=== PATIENT | male | born 1960 | race Caucasian/White ===

== ENCOUNTER 2025-01-12 08:01 | Emergency (ER) | payer BC, SELFPAY ==
[2025-01-12] VITALS (14 sets, daily range): BP systolic 128–180; BP diastolic 67–106
--- NOTE | 2025-01-12 08:22 | ED.GENMED ---
History of Present Illness
<DOMENICO Garcia - Last Filed: 01/12/25 12:34>
General
Chief Complaint: Musculo-Skeletal Complaint
Source: patient
Exam Limitations: none
Time Seen by Provider: 01/12/25 08:11
Nursing documentation reviewed up to this point in time: agreed with
History of Present Illness
History of Present Illness:
64 yr old male presents today for evaluation of fall. Patient Tripped in the shower and landed on his right shoulder. He denies hitting his head. No loss of consciousness. He complains of pain to the right shoulder and is right-hand dominant.
He did take oxycodone prior to arrival. He is not on blood thinners.
Past History
<DOMENICO Garcia - Last Filed: 01/12/25 12:34>
Past History
ED Past Medical History: NIDDM
Social History
Tobacco: Non-smoker
Personal:
Living: with family
Phy Exam
<DOMENICO Garcia - Last Filed: 01/12/25 12:34>
General Physical Exam
General Presentation: no apparent distress
General age: appears stated age
General Skin: warm and dry
General Habitus: normal
General Mental: alert
General Hydration: appears well hydrated
Eye Exam
Eye Exam: PERRL and EOMI
Eye Exam General: PERRL: bilateral
Pupil Exam: Bilateral: round and reactive
Neurological Exam
Neurological Exam: alert and oriented x3
Musculoskeletal Exam
Musculoskeletal Exam: other (No obvious head injury no cervical spine tenderness patient with obvious deformity to right shoulder strong pulses normal distal sensation)
Skin Exam
Skin Exam: normal color and warm/dry
Psychiatric Exam
Psychiatric Exam: normal mood/affect
Course
<DOMENICO Garcia - Last Filed: 01/12/25 12:34>
Orders/Labs/Results
Orders:
Orders
01/12/25 08:08
Shoulder, Right, Trauma [CR Shoulder, Trauma - Right] Urgent
Comment:
Reason For Exam: pain injury
01/12/25 08:46
HYDROmorphone [Dilaudid] 0.5 mg IV NOW STA
01/12/25 09:29
Propofol [Diprivan] 20 ml .ROUTE .STK-MED
01/12/25 10:04
Shoulder, Right 2 Views [CR Shoulder - Right Min 2 View] Stat
Comment:
Reason For Exam: post reduction
01/12/25 10:11
CT Upper Ext W/o Iv Cont Rt Urgent
Comment:
Reason For Exam: right shoulder
01/12/25 12:09
Oxycodone [Roxicodone] 5 mg PO NOW STA
Vital Signs
Initial and Last Documented VS:
Initial Vital Signs
Temp Pulse Resp BP Pulse Ox
98.0 F 66 16 166/87 100
01/12/25 08:05 01/12/25 08:05 01/12/25 08:05 01/12/25 08:05 01/12/25 08:05
Last Documented Vital Signs
Temp Pulse Resp BP Pulse Ox
98 F 78 16 128/67 100
01/12/25 12:07 01/12/25 12:07 01/12/25 12:07 01/12/25 12:07 01/12/25 12:07
<Carlos Jacobs MD - Last Filed: 01/12/25 10:26>
Orders/Labs/Results
Orders:
Orders
01/12/25 08:08
Shoulder, Right, Trauma [CR Shoulder, Trauma - Right] Urgent
Comment:
Reason For Exam: pain injury
01/12/25 08:46
HYDROmorphone [Dilaudid] 0.5 mg IV NOW STA
01/12/25 09:29
Propofol [Diprivan] 20 ml .ROUTE .STK-MED
01/12/25 10:04
Shoulder, Right 2 Views [CR Shoulder - Right Min 2 View] Stat
Comment:
Reason For Exam: post reduction
01/12/25 10:11
CT Upper Ext W/o Iv Cont Rt Urgent
Comment:
Reason For Exam: right shoulder
01/12/25 12:09
Oxycodone [Roxicodone] 5 mg PO NOW STA
Vital Signs
Initial and Last Documented VS:
Initial Vital Signs
Temp Pulse Resp BP Pulse Ox
98.0 F 66 16 166/87 100
01/12/25 08:05 01/12/25 08:05 01/12/25 08:05 01/12/25 08:05 01/12/25 08:05
Last Documented Vital Signs
Temp Pulse Resp BP Pulse Ox
98 F 78 16 128/67 100
01/12/25 12:07 01/12/25 12:07 01/12/25 12:07 01/12/25 12:07 01/12/25 12:07
Procedures
<DOMENICO Garcia - Last Filed: 01/12/25 12:34>
Moderate Sedation
ASA Risk Score: Class II
Chart and allergies reviewed: Yes
Consent for anesthesia obtained: Yes
Time out completed (validating right patient & procedure): Yes
History of difficult intubation: No
Airway free of obstruction: Yes
Patient has a gag reflex: Yes
Patient is able to open mouth: Yes
Patient has no dentures: No (partial removed )
Patient has no loose teeth: Yes
Medication administered by Provider during Moderate Sedation: IV Propofol (mg)
Total dose administered: 100
Time drug administered: 09:57
Moderate Sedation Procedure End Time: 10:13
Joint/Fracture Reduction
Right Shoulder:
Indication for procedure:: Fracture dislocation right shoulder
Procedure completed by: Dr. Jacobs/myself
Consent form signed: Yes
If no, reason: Emergency procedure
Joint reduced: with anesthesia sedation
Injury was: closed
Further treatement: needs re-check only
Post reduction exam: stable
Capillary Refill: normal
Normal distal neurovascular exam?: Yes
<DOMENICO Garcia - Last Filed: 01/12/25 12:34>
MDM/Problems Addressed
Differential Diagnosis Includes:
Not limited to contusion fracture dislocation
MDM/Problems Addressed:
64 yr old male present to the ER for evaluation after fall in the shower. He landed on his right shoulder no head injury no neck pain. Patient presents the fracture dislocation to the right shoulder with strong pulses normal neurovascular exam.
Case reviewed with orthopedics was able to visualize x-ray via [place] text does recommend to reduce.
Case discussed with ED physician moderate sedation was done and right shoulder was successfully reduced there is still a visible fracture, of the neck of the right proximal humerus.
As per orthopedics Dr. Lancaster CAT scan done. Will plan for discharge, close outpatient follow-up in a sling.
<DOMENICO Garcia - Last Filed: 01/12/25 12:34>
*Radiology
Radiology exam reviewed: radiology read reviewed
*Pulse Oximetry
SaO2: 100
Oxygen Mode of Delivery: Room air
Patient hypoxic: no
*Critical Care Note
Total Time (30-74mins, 75-104mins- exclusive of procedures): Not Applicable
ED Attending Note
<DOMENICO Garcia - Last Filed: 01/12/25 12:34>
-
Portions of this chart may have been created with voice recognition software.� Occasional wrong word or��sound alike� substitutions may have occurred due to the inherent limitations of voice recognition software.
<Carlos Jacobs MD - Last Filed: 01/12/25 10:26>
ED Attending Note
Patient seen and examined by attending physician: Yes
I performed the substantive portion of visit, reviewed & personally made and approve the management plan that is documented in note by myself or NADIRA.: Yes
ED Attending Note:
64-year-old male slipped in the shower. Fell on his right shoulder. Only complaining of right shoulder pain. No head injury neck injury chest pain shortness of breath abdominal pain. No thinners. Has some slight tingling in the arm via the
ambulance but currently denies this.
On exam patient is nontoxic in no distress. Normocephalic atraumatic. Neck nontender. No chest wall tenderness. Airway is clear. He does have a partial plate that he will removed. Swelling and humeral head palpable anterior to the shoulder.
Good distal pulses and color. The rest of the upper extremities unremarkable.
Pression is fracture dislocation of the right shoulder. No other significant injury. Discussed and reviewed with orthopedics who recommends attempted reduction. This was all explained to the patient with risk of inability to reduce, worsening the
fracture, neurovascular injury.
Shoulder was reduced with inline traction without difficulty. 100 mg of propofol was given. Some brief bagging support for borderline pulse ox. Patient tolerated the procedure well. Good neurovascular intact. Repeat x-ray significant
improvement and resolved as far as dislocation. CT scan pending.
Discharge Plan
Departure
Patient Disposition: Home (Routine Discharge)
Date of Disposition: 01/12/25
Time of Disposition: 12:27
Patient with high blood pressure during this ER visit?: Yes
Condition: Fair
Covid-19: Not Applicable
Discharge Problem:
Anterior dislocation of shoulder, Closed fracture of shoulder
Instructions: Shoulder Dislocation (DC), Shoulder or upper arm fracture
Prescriptions:
New
oxycodone 5 mg tablet
5 mg PO Q6H PRN (Reason: Pain) Qty: 10 0RF
No Action
atorvastatin [Lipitor] 40 MG tablet
40 mg PO DAILY
aspirin [Aspir-Low] 81 MG tablet,delayed release (DR/EC)
81 mg PO DAILY
omeprazole [Prilosec] 10 MG capsule,delayed release(DR/EC)
10 mg PO DAILY
metformin 1,000 MG tablet
1,000 mg PO BID
ramipril 10 MG capsule
10 mg PO DAILY
metoprolol tartrate 25 MG tablet
25 mg PO DAILY
canagliflozin [Invokana] 300 MG tablet
300 mg PO DAILY
Referrals:
Eze Herrera CRNP [Family Provider, Family Practice]
Zeb Lancaster MD [Active, Orthopedics]
Activity Restrictions/Additional Instructions:
As discussed wear immobilizer until seen and evaluated by orthopedics. Please call today for an appointment this week. Ice the affected area over the next 24 hours 20 minutes at a time several times a day. You may take Tylenol and ibuprofen
for discomfort however if needed you may take oxycodone. This is a narcotic. No driving or drink alcohol while taking this medication. This medication is constipating please take a laxative while you are taking this. This medication were sent
to your pharmacy. Take only as directed.
Return if any worsening of symptoms of increased pain 'numb or blue fingers
Interventions
Interventions:
*Risk Screen - Suicide Last Done: 01/12/25 08:05
*General Assessment Last Done: 01/12/25 09:03
*Neglect/Abuse Screening Last Done: 01/12/25 08:05
*ED- Fall Risk Assessment Last Done: 01/12/25 11:55
ED-Musculoskeletal Assessment Last Done: 01/12/25 09:02
Discharge Date and Time
Print Language: ITALIAN
[2025-01-12] MEDS: DILAUDID 0.5 MG IV (08:51)
[2025-01-12] MEDS: ROXICODONE 5 MG PO (12:30)
== END 2025-01-12 12:35 | disposition home or self-care (01) ==
LOC: EMR 08:01
PROVIDERS: EMERGENCY PHYSICIAN Emergency Medicine; FAMILY PHYSICIAN Nurse Practitioner Family
DX: S43.014A Anterior dislocation of right humerus, initial encounter (principal); S42.91XA Fracture of right shoulder girdle, part unspecified, initial encounter for closed fracture; W18.2XXA Fall in (into) shower or empty bathtub, initial encounter; Y93.E1 Activity, personal bathing and showering; E11.9 Type 2 diabetes mellitus without complications
CPT/HCPCS: 23650; 99152; 96374; 99285; 73030; 73200

== ENCOUNTER → 2025-01-15 08:06 | Outpatient (REF) | payer BC, SELFPAY ==
[2025-01-15 09:03] LABS: Hematocrit 42.8 % (39.0-52.0); Hemoglobin 14.5 g/dL (13.0-18.0); Mean Corp Hgb Conc. 33.9 g/dL (33.0-37.0); Mean Corpuscular Volume 97.3 fL (80.0-94.0); Nucleated Red Blood Cells % 0 % (-); Platelet Count 188 10^3/uL (130-400); Red Cell Dist. Width 12.8 % (11.5-14.5)
[2025-01-15 09:33] LABS: Blood Urea Nitrogen 20 mg/dl (9-20); Calcium 9.3 mg/dl (8.4-10.2); Carbon Dioxide 26 mmol/L (22-30); Chloride 105 mmol/L (98-107); Glucose 116 mg/dl (70-99); Potassium 4.1 mmol/L (3.5-5.1); Sodium 140 mmol/L (135-145); eGFR > 60.00
[2025-01-15 10:42] LABS: Glycohemoglobin (HgbA1c) 6.0 % (4.0-5.6)
== END ==
LOC: REG 08:06
PROVIDERS: ATTENDING PHYSICIAN Orthopaedic Surgery Hand Surgery; FAMILY PHYSICIAN Nurse Practitioner Family
DX: Z01.818 Encounter for other preprocedural examination (principal)
CPT/HCPCS: 36415; 80048; 83036; 85025; 86850; 86900; 86901; 93005

== ENCOUNTER 2025-01-19 05:50 | Day surgery (SDC) | payer BC, SELFPAY ==
--- NOTE | 2025-01-17 09:57 | PTCARENOTE ---
Patients last dose of Jardiance 01/17- Dr. Varghese notified, ok to proceed with procedure as planned
[2025-01-19] VITALS (7 sets, daily range): BP systolic 116–141; BP diastolic 64–84; BMI 26.6
[2025-01-19] MEDS: CELEBREX 200 MG PO (06:37)
[2025-01-19] MEDS: TYLENOL 1000 MG PO (06:38)
[2025-01-19 06:51] LABS: Glucose - Point of Care 110 mg/dl (70-99)
[2025-01-19] MEDS: NORMOSOL-R/PLASMALYTE-A 1000 IV (06:56)
[2025-01-19 09:06] LABS: Glucose - Point of Care 126 mg/dl (70-99)
== END 2025-01-19 10:43 | disposition home or self-care (01) ==
LOC: SDS 05:50
PROVIDERS: ATTENDING PHYSICIAN Orthopaedic Surgery Hand Surgery
DX: S42.201A Unspecified fracture of upper end of right humerus, initial encounter for closed fracture (principal); X58.XXXA Exposure to other specified factors, initial encounter
CPT/HCPCS: 23615; C1713; 73030; 76000; 82962